=== PATIENT | female | born 1960 | race Caucasian/White ===

== ENCOUNTER 2018-01-27 21:07 | Emergency (ER) | payer OTHER ==
[2018-01-27] MEDS: ONDANSETRON (ODT) 4 MG TAB ODT (22:15)
[2018-01-27] MEDS: ACETAMINOPHEN 500 MG TAB PO (22:15)
== END 2018-01-28 00:08 | disposition home or self-care (01) ==
LOC: FTE 01-28 00:08
DX: S50.811A Abrasion of right forearm, initial encounter (principal); S00.81XA Abrasion of other part of head, initial encounter; S90.511A Abrasion, right ankle, initial encounter; R11.10 Vomiting, unspecified; R51 Headache; W01.0XXA Fall on same level from slipping, tripping and stumbling without subsequent striking against object, initial encounter; Y92.481 Parking lot as the place of occurrence of the external cause
CPT/HCPCS: 29125; 70450; 72125; 73090-RT; 73110-RT; 73130-RT; 73610-RT; 99285-25

== ENCOUNTER 2018-01-28 23:59 | Emergency (ER) | payer OTHER ==
[2018-01-29 05:32] LABS: ADD MAN DIFF? NO
[2018-01-29 05:41] LABS: ALANINE AMINOTRANSFERASE 40 IU/L (13-69); ALBUMIN 4.2 g/dl (3.3-4.9); ALBUMIN/GLOBULIN RATIO 1.31; ALKALINE PHOSPHATASE 64 IU/L (42-121); ANION GAP 13 (8-16); ASPARTATE AMINO TRANSFERASE 44 IU/L (15-46); BILIRUBIN,INDIRECT 0.2 mg/dl (0-1.1); BILIRUBIN,TOTAL 0.2 mg/dl (0.2-1.3); BLOOD UREA NITROGEN 15 mg/dl (7-20); CALCIUM 9.4 mg/dl (8.4-10.2); CARBON DIOXIDE 27 mmol/L (21-31); CHLORIDE 106 mmol/L (97-110); CREATININE 0.78 mg/dl (0.44-1.00); GLUCOSE 96 mg/dl (70-220); SODIUM 142 mmol/L (135-144); TOTAL PROTEIN 7.4 g/dl (6.1-8.1)
[2018-01-29 05:49] LABS: ERYTHROCYTE SEDIMENTATION RATE 25 mm/Hr (0-30)
[2018-01-29 05:51] LABS: BASOPHILS % 0.4 % (0.0-2.0); EOSINOPHILS # 0.2 10^3/ul (0.0-0.5); EOSINOPHILS % 2.3 % (0.0-7.0); HEMATOCRIT 39.9 % (37.0-47.0); HEMOGLOBIN 13.1 g/dl (12.0-16.0); LYMPHOCYTES # 2.8 10^3/ul (0.8-2.9); LYMPHOCYTES % 29.2 % (15.0-51.0); MEAN CORPUSCULAR HEMOGLOBIN 30.4 pg (29.0-33.0); MEAN CORPUSCULAR HGB CONC 32.8 g/dl (32.0-37.0); MEAN CORPUSCULAR VOLUME 92.6 fl (82.0-101.0); MEAN PLATELET VOLUME 10.1 fl (7.4-10.4); MONOCYTE # 0.8 10^3/ul (0.3-0.9); MONOCYTES % 8.3 % (0.0-11.0); NEUTROPHIL # 5.7 10^3/ul (1.6-7.5); NEUTROPHILS % 59.6 % (39.0-77.0); PLATELET COUNT 326 10^3/UL (140-415); RED BLOOD COUNT 4.31 10^6/ul (4.20-5.40); RED CELL DISTRIBUTION WIDTH 14.3 % (11.5-14.5)
[2018-01-29 05:51] LABS: WHITE BLOOD COUNT 9.6 10^3/ul (4.8-10.8)
[2018-01-29 05:54] LABS: C-REACTIVE PROTEIN HIGH SENSI 1.38 mg/dl (0.00-0.74)
== END 2018-01-29 06:28 | disposition home or self-care (01) ==
LOC: FTE 23:59
DX: S63.501A Unspecified sprain of right wrist, initial encounter (principal); L03.113 Cellulitis of right upper limb; W19.XXXA Unspecified fall, initial encounter; Y92.9 Unspecified place or not applicable
CPT/HCPCS: 29125; 73200; 73206; 80053; 85025; 85651; 86140; 99284-25